=== PATIENT | female | born 1960 | race Caucasian/White ===

== ENCOUNTER 2017-11-11 08:02 | Outpatient (CLI) | payer OTHER ==
--- NOTE | 2017-11-22 11:25 | MMO ---
BILATERAL SCREENING MAMMOGRAM: INDICATIONS: Annual exam. COMPARISON: 07/16/2015 FINDINGS: The interpretation of the examination was assisted with computer aided detection. The breast parenchyma is heterogeneously dense. There are benign appearing calcifications bilaterally. There is a stable biopsy clip within the left breast. IMPRESSION: BI-RADS Category 2: Benign. Recommend routine annual mammographic screening. POS: LEEANNE
== END 2017-11-11 08:03 | disposition home or self-care (01) ==
LOC: SCSMAMMO 08:02
PROVIDERS: ATTEND Family Medicine
DX: Z12.31 Encounter for screening mammogram for malignant neoplasm of breast (principal)
CPT/HCPCS: 77067